=== PATIENT | male | born 1955 | race Caucasian/White ===

== ENCOUNTER → 2016-10-29 | Outpatient (CLI) | payer BC | LOC: FIMAGING 07:49 | PROVIDERS: ATTEND Family Medicine | DX: R91.8 Other nonspecific abnormal finding of lung field (principal); I25.10 Atherosclerotic heart disease of native coronary artery without angina pectoris ==

== ENCOUNTER 2017-02-02 10:10 | Emergency (ER) | payer BC ==
[2017-02-02 12:23] LABS: % IMMATURE GRANULYOCYTES 0.5 % (0.0-1.1); ABSOLUTE IMMATURE GRANULOCYTES 0.04 10^3/uL (0.00-0.10); ADD DIFF? NO; ADD MORPH? NO; ADD SCAN? NO; ATYPICAL LYMPHOCYTE FLAG 10 (0-99); FRAGMENT RBC FLAG 0 (0-99); HEMATOCRIT 43.2 % (40.0-51.0); HEMOGLOBIN 15.1 g/dL (13.7-17.5); LEFT SHIFT FLG 10 (0-99); LIPEMIA HEMOLYSIS FLAG 90 (0-99); MEAN CELL HEMOGLOBIN 29.2 pg (27.9-34.1); MEAN CELL VOLUME 83.4 fL (81.5-99.8); MEAN PLATELET VOLUME 10.4 fL (8.7-11.7); PLATELET CLUMPS FLAG 0 (0-99); PLATELET COUNT 146 10^3/uL (150-400); RED BLOOD CELL COUNT 5.18 10^6/uL (4.40-6.38); RED CELL DISTRIBUTION WIDTH 12.6 % (11.5-15.2)
[2017-02-02 12:42] LABS: ANION GAP 10 mEq/L (8-16); CARBON DIOXIDE 24 mEq/l (22-31); CHLORIDE 105 mEq/L (97-110); CREATININE 0.7 mg/dL (0.7-1.3); GLOMERULAR FILTRATION RATE > 60; GLUCOSE 87 mg/dL (70-100); SODIUM 139 mEq/L (134-144)
--- NOTE | 2017-02-02 13:25 | EDPHY ---
H & P Smoking Status: Never smoked Time Seen by Provider: 02/02/17 11:54 HPI/ROS: CHIEF COMPLAINT: Swelling of right foot and ankle HISTORY OF PRESENT ILLNESS: 61-year-old male presents to the emergency department by private vehicle with concerns about swelling to the right foot and ankle. Denies any known trauma or injury. He went to his scheduled physical therapy appointment this morning in his therapist was concerned about possible blood clot in advised that he come to the emergency department for evaluation. He denies numbness or tingling in his toes, pain in his thigh or groin. Denies fevers or chills. Denies chest pain or difficulty breathing. Denies abdominal pain. REVIEW OF SYSTEMS: Constitutional: No fever, no chills. Eyes: No double or blurry vision. ENT: No sore throat. Respiratory: No cough, no shortness of breath. Cardiac: No chest pain. Gastrointestinal: No abdominal pain, vomiting or diarrhea. Genitourinary: No dysuria. Musculoskeletal: No neck or back pain. Skin: No rashes. Neurological: No headache. (Vangie,Eliana M) Past Medical/Surgical History: CVA 1 year ago, back surgery (Vangie,Eliana M) Social History: and lives in [place] (Vangie,Eliana M) Physical Exam: General Appearance: Alert, no distress. Afebrile. Eyes: Pupils equal and round. Extraocular motions are all intact. ENT: Mouth: Mucous membranes moist. Respiratory: No wheezing, rhonchi, or rales, lungs are clear to auscultation. Cardiovascular: Regular rate and rhythm. Gastrointestinal: Abdomen is soft and nontender, no masses, no rebound or guarding, bowel sounds normal. Neurological: Alert and oriented x 3, cranial nerves II through XII grossly intact Skin: Warm and dry, no rashes. Musculoskeletal: Nontender to palpate along the cervical, thoracic or lumbar spine. Neck is supple. Extremities: Diffuse swelling noted to the dorsal aspect of the right foot extending up into the ankle into the mid calf. Nontender to palpate. There is no warmth. No redness. I do not see any evidence of cellulitis. No abrasion. No fungal infections noted. Full range of motion of his right foot and ankle. Normal sensation to light touch with normal 2 point discrimination. Strong dorsalis pedis pulse on the dorsal aspect of his right foot. Psychiatric: Patient is oriented X 3, there is no agitation. (Eliana Vences) Constitutional: Initial Vital Signs Temperature (C) 36.9 C 02/02/17 10:14 Heart Rate 65 02/02/17 10:14 Respiratory Rate 16 02/02/17 10:14 Blood Pressure 116/80 02/02/17 10:14 O2 Sat (%) 96 02/02/17 10:14 O2 Delivery Mode Room Air Allergies/Adverse Reactions: No Known Allergies Allergy (Verified 02/02/17 10:17) Home Medications: Medication Instructions Recorded Atorvastatin Calcium [Lipitor 10 10 mg PO DAILY #30 tab 03/03/16 mg (*)] Clopidogrel Bisulfate [Plavix (*)] 75 mg PO DAILY #30 tab 03/03/16 Gabapentin 100 mg PO HS #30 tablet 03/03/16 Insulin Glargine [Lantus 100 15 units SC HS #1 ml 03/03/16 UNITS/ML (*)] Insulin Lispro [humALOG LISPRO 100 2 - 10 unit SC TIDMEAL #1 unit 03/03/16 units/ml (*)] Valsartan/Hydrochlorothiazide 1 each PO DAILY #30 tablet 03/03/16 [Valsartan-Hctz 320-12.5 mg Tab] glipiZIDE [Glucotrol 5 mg] 5 mg PO DAILY #30 tab 03/03/16 Medical Decision Making - Diagnostics Imaging: Discussed imaging studies w/ international controller Radiologist ED Course/Re-evaluation: 61-year-old male presents to the emergency department with swelling to the right foot and ankle. Ultrasound the right lower extremity reveals no evidence of DVT. I doubt cellulitis. The patient is afebrile. Normal white blood cell count. I do not think IV antibiotics are indicated. The case was discussed with Dr. Fred Castorena, secondary supervising physician, who also evaluated the patient. He recommends having the patient elevate his leg and have follow-up with primary care provider. He agreed that no other intervention was necessary. Patient was comfortable being discharged home. He was reassured that there is no evidence of blood clot or signs of cellulitis. (Eliana Vences) I also saw this patient while he was in the emergency department. Patient and I reviewed the history of swelling of his foot without trauma. He had been working in the [employer] earlier in the day before the swelling started. The patient also shows me picture on his cell phone from about a month ago when he had very prominent veins in his right foot and has had similar symptoms previously. I reviewed the ultrasound which showed no evidence of DVT. The exam shows diffuse swelling of the right foot without evidence of puncture wound laceration insect bite. No evidence for cellulitis. The etiology of the patient's swelling is not clear though possible is related to contact dermatitis from working in the [employer] or insect bite. I agree with treatment plan and management (Fred Castorena) Differential Diagnosis: Including but not limited to DVT, cellulitis, fracture (Eliana Vences) - Data Points Laboratory Results: Laboratory Results 02/02/17 12:16 02/02/17 12:16 Departure - Departure Disposition: Home, Routine, Self-Care Clinical Impression: Swelling right foot and ankle Condition: Good Instructions: Leg Edema (ED) Additional Instructions: Follow up with primary care provider to recheck on Tuesday. Elevate your leg. Return to the emergency department if you develop pain, redness, warmth, fever, or if you feel worse in any way. Referrals: Fred Andrew [Primary Care Provider] - 1-2 days without fail
[2017-02-02 14:06] VITALS: BP 123/80; PULSE 57; RESP 18; TEMP 97.7; O2SAT 97
== END 2017-02-02 14:06 | disposition home or self-care (01) ==
DX: M79.89 Other specified soft tissue disorders (principal); M25.471 Effusion, right ankle; Z79.4 Long term (current) use of insulin; Z86.73 Personal history of transient ischemic attack (TIA), and cerebral infarction without residual deficits

== ENCOUNTER → 2017-09-23 | Outpatient (CLI) | payer BC | LOC: FIMAGING 09:05 | PROVIDERS: ATTEND Family Medicine | DX: M25.511 Pain in right shoulder (principal); M25.512 Pain in left shoulder ==

== ENCOUNTER 2018-02-02 15:26 | Inpatient (IN) | payer BC ==
[2018-02-02] MEDS ORDERED: HYDROCODONE/APAP 5/325 TAB PO PRN (16:38)
[2018-02-02] MEDS ORDERED: ONDANSETRON 4 MG/2 ML VIAL IVP PRN (16:38)
[2018-02-02] MEDS ORDERED: ONDANSETRON DISINTEGRATING 4 MG TAB PO PRN (16:38)
[2018-02-02] MEDS ORDERED: IBUPROFEN 200 MG TAB PO PRN (16:38)
[2018-02-02] MEDS ORDERED: ACETAMINOPHEN 325 MG TAB PO PRN (16:38)
[2018-02-02] MEDS ORDERED: D50W 25 GM/50 ML VIAL IVP PRN ×2 (16:42→16:54)
[2018-02-02] MEDS ORDERED: NS 1,000 ML IV SCH (17:00)
--- NOTE | 2018-02-02 17:14 | PDGENHP ---
History and Physical - Chief Complaint left foot infection - History of Present Illness This is a 62 yo male with hx of DM-II/IDDM who presented to his PCP with worsening left foot erythema, swelling, and purulent vesicle. He is being directly admitted for further mgmt. He initially presented about a week ago and was diagnosed with Gout and started on colchicine w/o significant improvement. He was then started on Keflex a few days ago but symptoms have worsen since starting. He has not had a fever or malaise. As for his DM mgmt, he has a hx of poorly controlled glucose until he had a CVA affecting his left side about 2 years ago. Since then his glucose mgmt have been optimized and he has been successfully maintaining adequate A1C's. He denies cp, sob, n/v/d PMHx: IDDM/DMII CVA Left sided weakness to LUE LLE chronic low back pain PSHx: lumbar surgery left 5th finger reattachment Soc: denies T/E/I FmHx: non contributory History Information - Allergies/Home Medication List Allergies/Adverse Reactions: No Known Allergies Allergy (Verified 02/02/17 10:17) I have personally reviewed and updated: medical history, social history - Social History Smoking Status: Never smoked Review of Systems Review of Systems: ROS: 10pt was reviewed & negative except for what was stated in HPI & below Physical Exam Physical Exam: Temp Pulse Resp BP Pulse Ox 36.4 C 67 15 100/59 L 95 02/02/18 16:48 02/02/18 16:48 02/02/18 16:48 02/02/18 16:48 02/02/18 16:48 Constitutional: no apparent distress Eyes: PERRL, EOMI Ears, Nose, Mouth, Throat: moist mucous membranes, hearing normal Cardiovascular: regular rate and rhythym, No edema Respiratory: no respiratory distress, no rales or rhonchi, clear to auscultation Gastrointestinal: normoactive bowel sounds, soft, non-tender abdomen Skin: warm, other (Erythema and swelling involving the left big toe. Purulent vesicle present. ) Musculoskeletal: full muscle strength Neurologic: AAOx3 Psychiatric: interacting appropriately, not anxious, not encephalopathic Assessment & Plan Assessment: #Left Foot Diabetic Ulcer with Cellulitis #DMII, IDDM #Hx of CVA with residual left sided weakness Plan: Start Vancomycin IVF obtain stat labs (he does not have a hx of renal impairment) check CRP Check XR, pending results consider MRI Pain mgmt Dr. Fred Hung with Podiatry to consult tomorrow NPO at midnight Home meds as appropriate once a med list becomes available
[2018-02-02 17:30] LABS: PLATELET COUNT 255 10^3/uL (150-400)
[2018-02-02] MEDS ORDERED: INSULIN REGULAR HUMAN 100 UNIT/ML UNIT SC SCH (17:30)
[2018-02-02 17:48] LABS: INR 1.08 (0.83-1.16); PROTIME(PATIENT) 14.2 SEC (12.0-15.0)
[2018-02-02] MEDS: ERTAPENEM 1 GM in NS 100 ML IV SCH (18:20)
[2018-02-02] MEDS: INSULIN LISPRO 100 UNIT/ML SC SCH (18:39)
[2018-02-02] MEDS: VANCOMYCIN 1.25 GM in NS 250 ML IV SCH (20:03)
[2018-02-02] MEDS: ATORVASTATIN CALCIUM 10 MG TAB PO SCH (20:03)
[2018-02-02] MEDS ORDERED: INSULIN GLARGINE 100 UNITS/ML UNIT SC SCH (21:00)
[2018-02-02] MEDS: GABAPENTIN 300 MG CAP PO SCH (21:48)
[2018-02-03 05:48] LABS: PLATELET COUNT 205 10^3/uL (150-400)
[2018-02-03] MEDS: VANCOMYCIN 1.25 GM in NS 250 ML IV SCH ×2 (07:38→18:14)
[2018-02-03] MEDS: INSULIN LISPRO 100 UNIT/ML SC SCH ×3 (07:40→17:43)
--- NOTE | 2018-02-03 08:19 | GCON ---
[f rep st] CONSULTATION REASON FOR CONSULTATION: Cellulitis of left foot with purulent vesicles. HISTORY OF PRESENT ILLNESS: Mr. Posye is a 62-year-old gentleman with a history of type 2 insulin dependent diabetes, who presented to his primary care doctor, Dr. Fred Andrew, roughly 1 week ago fo r redness and mild pain to his 1st metatarsophalangeal joint of his left foot. He was initially give n colchicine with mild improvement, but not complete. The patient was then placed on Keflex a few da ys ago, but the symptoms did worsen, including further redness and swelling and blister formation. T he patient denied any fever, chills, nausea, vomiting, shortness of breath, or chest pain during this course. He was directly admitted for further management of this infection. PAST MEDICAL HISTORY: Again is for a cerebrovascular accident 2 years ago that left the left side wi th weakness. He has insulin-dependent diabetes type 2. PAST SURGICAL HISTORY: Significant for a back surgery of the lower lumbar region. ALLERGIES: He has no known allergies. SOCIAL HISTORY: He denies any alcohol, illicits, or tobacco use. FAMILY HISTORY: Noncontributory. REVIEW OF SYSTEMS: The remainder of a 10-point Review of Systems was completed and negative, except for anything within the history of present illness. EXAMINATION: Most recent vital signs: Blood pressure is 107/67, heart rate is 54, respiratory rate 18. He is on room air at 96% O2. Current temperature is 36.8. Lower extremity physical exam is sig nificant for a red and mildly swollen 1st metatarsophalangeal joint. He has positive pulses, dorsali s pedis and posterior tibial pulses. He has 2 bullae, 1 to the medial aspect of his 1st metatarsopha langeal joint and 1 to the web space on the plantar aspect of the 1st web space, both of the left aurora t. Both bullae were deroofed, and the base of this wound showed normal and healthy epithelial tissue . There were no open wounds. There was no drainage and no malodor from any area as well. LABORATORY DATA: Most recent labs are all within normal limits. This morning, his white blood cell count is 7.25. He has no left shift. Blood cultures are pending. ASSESSMENT AND PLAN: 1. Type 2 diabetes. Blood glucose will continue to be monitored while as an inpatient. 2. Cellulitis of the left foot without open wounds. I would consider continuing the IV antibiotics for another 24 hours and then switching over to oral antibiotics, most likely a more broad-spectrum w ould be adequate. I would also like to see this patient in my outpatient clinic sometime in the next 7 days for further followup. The number to call is [phone]. I do not believe this patient is a surgical candidate at this time. I did see the x-rays showing that there are 2 small metallic spli nter-like objects at the base of the proximal phalanx of the 2nd toe, left foot. I am unsure that th is has anything to do with the current infection as the majority of the symptoms started in the 1st m etatarsophalangeal joint. There was also no puncture wound that I can tell on the plantar aspect of the patient's foot. I would consider this an incidental finding until the infection clears itself ag ain more directly from this area. I believe that I could follow this as an outpatient. The patient has been educated on walking barefoot with his neuropathy. Podiatry appreciates the consult and look s forward to taking care of this patient as an outpatient once the infection is resolved. /[id number]/MODL
[2018-02-03] MEDS: GABAPENTIN 300 MG CAP PO SCH ×3 (08:49→21:24)
[2018-02-03] MEDS: VALSARTAN 80 MG TAB PO SCH (08:50)
[2018-02-03] MEDS: FLUoxetine 20 MG CAP PO SCH (08:52)
[2018-02-03] MEDS ORDERED: ENOXAPARIN 40 MG/0.4 ML SYR SC SCH (09:00)
[2018-02-03] MEDS: ERTAPENEM 1 GM in NS 100 ML IV SCH (09:34)
--- NOTE | 2018-02-03 10:24 | ASMTCMCOM ---
CM Note CM Note Notes: Patient admitted for cellulitis if his foot. Treated with IV antibiotics at present. He has history significant for CVA with left side residual weakness and IDDM. Seen by podiatry. CM to follow. Plan: TBD at this time. Date Signed: 02/03/2018 10:23 AM Electronically Signed By:Helga Ricci RN
--- NOTE | 2018-02-03 13:47 | PDMN ---
Medical Necessity Medical necessity: MCG M70 cellulitis A-2 days: INPT for L foot diabetic ulcer with cellulitis with failed oupt tx, in pt with hx of DMII, IDDM poorly controlled, HX CVA, pt will be NPO for Podiatry consult, anticipate > 2 midnights ongoing med nec eval and tx IVF, IV ABXs,
--- NOTE | 2018-02-03 17:19 | HOSPPROG ---
Hospitalist Progress Note Assessment/Plan: Subjective Follow-up on diabetic foot wound. No acute events overnight. Patient states he feels that the wound is looking better. Dr. Espinoza did consult on the case. I discussed with the patient we would anticipate another 24 hr of IV broad- spectrum antibiotics and if continued improvement likely could discharge home tomorrow with or transition oral antibiotics with the plan for short-term follow up with Dr. Hung for reassessment. Objective Vital signs as detailed below Physical exam General-patient appears comfortable he is awake alert conversant no acute distress Heart-regular rate and rhythm no murmurs are appreciated Lungs-Clear to auscultation with normal respiratory effort Abdomen-soft nontender nondistended normal bowel sounds -no Nolasco catheter in place Skin-erythema pronounced around the 1st and 2nd toes with the receiving erythema noted. No fluid collections or pus pockets appreciated. Labs as detailed below Assessment plan Diabetic foot wound-appears to be improving. Will continue with the current her Dipentum and vancomycin overnight and then plan on transition to oral antibiotics discharge home if continued improvement. Will plan on follow-up with Dr. Alexis Black after hospital discharge. History of CVA-continue atorvastatin and aspirin. Hypertension-continue Diovan. Control looks reasonable at the current time. Diabetes mellitus type 2-continue current insulin. Depression-continue Prozac DVT prophylaxis-Lovenox Disposition-anticipate discharge with oral antibiotics tomorrow if continued clinical improvement. Objective: Vital Signs Temp Pulse Resp BP Pulse Ox 36.9 C 68 14 120/76 94 02/03/18 16:17 02/03/18 16:17 02/03/18 16:17 02/03/18 16:17 02/03/18 16:17 Laboratory Results 02/03/18 04:55 02/03/18 04:55 02/02/18 02/03/18 02/04/18 05:59 05:59 05:59 Intake Total 975 Output Total 51 Balance 924 PT 14.2 SEC (12.0-15.0) 02/02/18 17:25 INR 1.08 (0.83-1.16) 02/02/18 17:25 ICD10 Worksheet Patient Problems: Problems Problem Status Onset Hyperglycemia due to type 2 diabetes mellitus Acute Near syncope Acute
[2018-02-03] MEDS: ATORVASTATIN CALCIUM 10 MG TAB PO SCH (21:24)
[2018-02-04] MEDS: GABAPENTIN 300 MG CAP PO SCH (06:40)
[2018-02-04] MEDS: VANCOMYCIN 1.25 GM in NS 250 ML IV SCH (06:40)
[2018-02-04] MEDS ORDERED: CLOPIDOGREL BISULFATE 75 MG TAB PO SCH (09:00)
[2018-02-04] MEDS: INSULIN LISPRO 100 UNIT/ML SC SCH (09:00)
[2018-02-04] MEDS: ERTAPENEM 1 GM in NS 100 ML IV SCH (09:06)
[2018-02-04] MEDS: FLUoxetine 20 MG CAP PO SCH (09:07)
[2018-02-04] MEDS: VALSARTAN 80 MG TAB PO SCH (09:08)
[2018-02-04 09:16] VITALS: BP 125/77
--- NOTE | 2018-02-04 09:47 | GDS ---
[f rep st] DISCHARGE SUMMARY IN-HOSPITAL CONSULTANTS: Dr. Ferd Hung, podiatry. DISCHARGE DIAGNOSIS: Cellulitis of the left lower extremity. HISTORY OF PRESENT ILLNESS: The patient is a pleasant 62-year-old gentleman with a past medical hist ory of hypertension and diabetes mellitus type 2, [facility] foot pain, swelling, and erythema. He had been on Keflex for a few days prior to coming into the hospital. He was admitted and placed on IV antibiotics. He was place d on ertapenem and vancomycin and had a good response with significant improvement in the erythema an d pain. A foot x-ray was obtained. This did not show any evidence of osteomyelitis. There were 2 l inear metallic foreign objects in the plantar aspect of the foot over the 2nd toe. 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 He does not recognize anything acute that could have h appened to his foot in that area and actually had no explanation for why the erythema developed sudde nly in the foot. Fortunately, though, he is improved at this time and will transition him to oral an tibiotics and plan on short-term followup with Dr. Andrew, as well as with Dr. Fred Hung. I [place] ve recommended a combination of Augmentin and Bactrim at the time of discharge. HOSPITAL COURSE: 1. Cellulitis, improved with IV antibiotics. He was on ertapenem and vancomycin during this hospita lization. Will transition him to oral antibiotics today with Augmentin and Bactrim. I have prescrib ed a 7-day prescription, and I am recommending followup with Dr. Fred Hung, as well as with Dr. Andrew for reassessment next week. 2. History of CVA. The patient was continued on Plavix and statin therapy. 3. Hypertension, well controlled during this hospitalization with 80 mg of Diovan. 4. Diabetes mellitus type 2. No changes were made to his insulin regimen. 5. Depression. He was continued on Prozac. 6. DVT prophylaxis. He was on Lovenox during this hospitalization. DISPOSITION: Patient appears stable for discharge home with weightbearing as tolerated on the left f oot. He was getting around reasonably well while here in the hospital. PHYSICAL EXAMINATION: Exam on day of discharge: VITAL SIGNS: Temperature 36.9, blood pressure 112/ 74, heart rate 59, respirations 16, saturating 95% on room air. GENERAL: The patient appears comfor table. He is awake, alert, conversant, no acute distress. HEART: Regular. No murmurs noted. LUNGS : Clear to auscultation. Normal respiratory effort. ABDOMEN: Soft, nontender, nondistended. : No Nolasco catheter in place. EXTREMITIES: No significant pitting edema. SKIN: Much diminished eryt jimmie around the left 1st toe. Mild amount of swelling, but much improved as compared to yesterday's exam. LABORATORY DATA: Notable studies: White blood cell count 7.25, hemoglobin 14, platelets 205. Wound culture is currently showing no growth at 36 hours. DISCHARGE MEDICATIONS: 1. Augmentin 875/125 one tablet twice a day for 7 days. 2. Bactrim DS 1 tablet twice a day for 7 days. 3. Levemir insulin 12 units nightly. 4. Prozac 40 mg daily. 5. Valsartan 80 mg daily. 6. Gabapentin 600 mg 3 times a day. 7. Plavix 75 mg daily. 8. Lipitor 10 mg nightly. 9. Lispro sliding scale t.i.d. before meals. DISCHARGE INSTRUCTIONS: I have recommended a followup visit with Dr. Fred Andrew, as well as Dr. Lyla Hung next week for reassessment. It would be reasonable to check a basic metabolic panel at his followup visit next week to assess his potassium level as he is on Bactrim and is also concurrent ly on Diovan. Forty minutes of time dedicated to discharge efforts today. /[id number]/MODL
--- NOTE | 2018-02-04 18:17 | ASMTLACE ---
LACE Length of stay for Answers: 1 day current admission Acuity / Level of Answers: Yes Care: Did the patient have an inpatient admission? Comorbidities - select Answers: Cerebrovascular disease all that apply (CVA, TIA, aneurysms, vasc ular dementia) Diabetes (uncontrolled or controlled) Opioid dependence / Chronic pain # of Emergency department Answers: 0 visits in the last 6 months Score: 10 Date Signed: 02/04/2018 06:17 PM Electronically Signed By:Althea Ramsey RN
--- NOTE | 2018-02-04 18:24 | ASDISCHSUM ---
Discharge Information Plan Status:Home with No Needs Medically Cleared to Leave:02/04/2018 Discharge Date:02/04/2018 10:45 AM CM D/C Disposition:Home, Routine, Self-Care ADT D/C Disposition:Home, Routine, Self-Care Projected Discharge Date:02/04/2018 10:45 AM Transportation at D/C:Family Discharge Delay Reason: Follow-Up Date:02/04/2018 10:45 AM Discharge Slot:1 - 8:01 am - 12:00 noon Final Diagnosis:Cellulitis left lower extremity, hx of CVA, HTN, diabetes type 2, depression Placement Information Patient Contact Information Contact Name:COURTNEY Relationship: Address:[address] City:[place] Alternate Phone: State/Zip Code:[place] [address] Email: Financial Information Financial Class:HMO and PPO Plans Primary Plan Desc: OUT OF STATE PPO Primary Plan Number:[id number] Secondary Plan Desc: Secondary Plan Number: Assessment Information LACE LACE Length of stay for Answers: 1 day current admission Acuity / Level of Answers: Yes Care: Did the patient have an inpatient admission? Comorbidities - select Answers: Cerebrovascular disease all that apply (CVA, TIA, aneurysms, vasc ular dementia) Diabetes (uncontrolled or controlled) Opioid dependence / Chronic pain # of Emergency department Answers: 0 visits in the last 6 months Score: 10 Date Signed: 02/04/2018 06:17 PM Electronically Signed By:Althea Ramsey RN [facility] Progress Note CM Note CM Note Notes: Patient admitted for cellulitis if his foot. Treated with IV antibiotics at present. He has history significant for CVA with left side residual weakness and IDDM. Seen by podiatry. CM to follow. Plan: TBD at this time. Date Signed: 02/03/2018 10:23 AM Electronically Signed By:Helga Ricci RN Case Management Discharge Plan Note Case Management Discharge Discharge Order Complete? Answers: Yes Patient to Obtain Answers: Independently Medications Transportation Arranged Answers: Family/Friends EMTALA Complete Answers: No Notes: N/A Case Management Transport Answers: No Notes: N/A Form Complete Faxed Final Orders Answers: No Notes: N/A Agency/Facility Transfer Answers: No Notes: N/A Report Printed & Faxed to Receiving Agency Family Notified Answers: No Notes: Pt to notify Discharge Comments Notes: Reviewed chart. Pt with cellulitis left lower extremity. Per MD notes, pt to discharge home independently with family support and no identified needs. Oral antibiotics prescribed, no home care indicated. No IM signed, not applicable. Pt to follow up as directed. CM available for any further issues or concerns. Discharge Plan: Home independent with family support Date Signed: 02/04/2018 06:23 PM Electronically Signed By:Althea Ramsey RN Intervention Information
[2018-02-04] MEDS ORDERED: SULFAMETHOX/TMP 800/160 MG 1 TAB PO SCH (21:00)
[2018-02-04] MEDS ORDERED: AMOXICILLIN/CLAVULANATE POT 875/125 MG TAB PO SCH (21:00)
== END 2018-02-04 10:45 | disposition home or self-care (01) | DRG 638 ==
LOC: F3N 16:27 → OBSVTOIN 16:38
PROVIDERS: ADMIT Family Medicine; ATTEND Family Medicine
DX: E11.621 Type 2 diabetes mellitus with foot ulcer (principal); L03.116 Cellulitis of left lower limb; I69.354 Hemiplegia and hemiparesis following cerebral infarction affecting left non-dominant side; I10 Essential (primary) hypertension; F32.9 Major depressive disorder, single episode, unspecified; Z79.4 Long term (current) use of insulin; Z18.10 Retained metal fragments, unspecified
CPT/HCPCS: J1335; J1650; J1815; J3370

== ENCOUNTER 2019-01-21 13:43 | Emergency (ER) | payer BC | END 2019-01-21 17:47 | disposition home or self-care (01) ==